=== PATIENT | male | born 1970 | race Caucasian/White ===

== ENCOUNTER 2018-08-09 09:07 | Day surgery (SDC) ==
[2018-08-09 09:51] VITALS: TEMP 98.3
[2018-08-09] MEDS ORDERED: LIDOCAINE 1% 20 ML MDV ID STA (09:52)
[2018-08-09] MEDS ORDERED: DIPRIVAN 20 ML VIAL IVP ONE (10:20)
[2018-08-09 15:11] VITALS: BP 132/66
--- NOTE | 2018-08-10 13:04 | OP ---
PROCEDURE: COLONOSCOPY TO THE CECUM WITH BIOPSY. ENDOSCOPIST: Camila MCKEON M.D. INDICATION: HEME POSITIVE STOOL. INSTRUMENT: PCFH-190. MEDICATION: PER ANESTHESIA. PROCEDURE: The patient was positioned for colonoscopy. The digital rectal exam was negative. The colonoscope was inserted through the anus and advanced to the cecum. The cecum was identified using the ileocecal valve and the appendiceal orifice as landmarks. The scope was slowly withdrawn through an adequately prepped colon. [place] Bowel Prep Score = 9. Terminal ileum is intubated and is normal. On the ileocecal valve we found small ulcerated areas. These were biopsied. There was nothing to suggest active Crohn's disease. Could represent either nonsteroidals or possible bowel prep artifact. Granular mucosa noted throughout the cecum. This was biopsied. Superficial erosions were also noted at that level. The remaining colonic mucosa was normal. Hemorrhoids were seen on retroflex exam. He tolerated the procedure without immediate complication. Withdrawal time 11 minutes and 25 seconds. PLAN: 1. Will review his pathology. 2. Ask him to stop all nonsteroidals. 3. Further recommendations to follow. cc: Dr. Alicia MCDONOUGH
== END 2018-08-09 11:20 | disposition home or self-care (01) ==
LOC: SURG 09:07
PROVIDERS: ATTEND Internal Medicine Gastroenterology
DX: R19.5 Other fecal abnormalities (principal); K63.89 Other specified diseases of intestine